=== PATIENT | female | born 1940 | race Caucasian/White ===

== ENCOUNTER → 2020-05-31 11:50 | Outpatient (CLI) | payer MEDICARE, SELFPAY ==
[2020-06-01 14:01] LABS: COVID19 Sendout Not Detected (Not Detect)
== END ==
PROVIDERS: Visit Provider Physician Assistant
DX: Z11.59 Encounter for screening for other viral diseases (principal)
CPT/HCPCS: 87635

== ENCOUNTER 2020-06-03 08:50 | Day surgery (SDC) | payer MEDICARE, SELFPAY ==
--- NOTE | 2020-06-03 | PATH_ITS ---
[facility] Accession Number: [id number] . 01 Material submitted: . small bowel - SMALL BOWEL BIOPSY . 02 Diagnosis: Small Bowel, Biopsy: Small bowel mucosa with no diagnostic abnormality. Negative for intraepithelial lymphocytosis or villous blunting. Negative for dysplasia and malignancy. MRV 06/05/2020 1303 Local . 02 Electronically signed: . Kim Hancock MD, Pathologist NPI- [id number] . 01 Gross description: . SMALL BOWEL BIOPSY: Received in formalin are 2 fragment(s) of hays, soft tissue measuring 0.1 x 0.1 x 0.1 cm to 0.3 x 0.2 x 0.2 cm submitted entirely in 1 cassette(s) /FLORI 06/04/20202051 Local . 02 Pathologist provided ICD-10: R13.10 . 02 CPT . 323768 Performed at: 01 [facility] [address] [facility], [place], [place] [id number] MD Robel Guillermo MD Phone: [phone] Performed at: [address] [facility] [address] [place], [place] [id number] MD Kim Hancock MD Phone: [phone]
[2020-06-03 09:14] VITALS: BP 162/62; PULSE 66; RESP 16; TEMP 36.3; O2SAT 98; BMI 21.6
[2020-06-03] MEDS: SODIUM CHLORIDE 0.9% 1,000 ML 42 ML IV (09:49)
--- NOTE | 2020-06-03 10:08 | PM.PREOP ---
Pre-operative Note COVID-19 COVID-19 status: Negative Interval Note History & Physical reviewed/Exam performed by Physician: Yes Changes to H&P: No ASA Class (for procedural sedation): II
--- NOTE | 2020-06-03 10:13 | PM.OP.ENDO ---
Operative Date/Time/Diagnoses Date of procedure: 06/03/20 Pre-op diagnosis: See indication and findings Procedure & Clinicians Study performed: EGD Same procedure as scheduled: Yes Indications: Dysphagia and anorexia after paraesophageal hernia repair Surgeon: Chino Doyle Procedure Notes Procedure in detail: After informed consent was obtained the patient was placed in left lateral decubitus position. Video upper scope was placed into the oropharynx and with the patient's help swelled into the esophagus. The esophagus, stomach, duodenum were carefully examined. On withdrawal, retroflexed view the GE junction was performed. The scope was removed. The patient tolerated procedure well. Blood loss none Complications none Sedation Total sedation time 19 minutes Versed 3 mg fentanyl 100 micro g IV titration Findings 1. Proximal esophagus with no coordinated contractions and some degree of spasm 2. Seemingly somewhat dilated in a peristaltic distal esophagus with a very tight GE junction. On retroflexed view this appeared to be an intact hernia repair. Given her degree of dysphagia and weight loss it was elected to dilate this. A balloon TTS was used 15-16.5-18. It was inflated Joseluis the 1st 2 steps and moved relatively easily within the lower esophageal sphincter/hernia repair site. On inflation to 18 mm there was a little bit of purchase. 3. Poor gastric emptying with large amount of old solid food present in the stomach 4. Normal duodenal bulb and sweep biopsies taken to rule out celiac Linda is becoming a bit more complicated. I believe that her dysphagia and some of her anorexia may be due to her tight repair site but clearly this of other symptoms and part of her anorexia may be due to very poor gastric emptying. This in turn is probably from inadvertent damage to the vagus nerve at the time of surgery. We will follow her up closely in the office.
[2020-06-03] MEDS: MIDAZOLAM 5 MG/5 ML VIAL IV (10:17)
[2020-06-03] MEDS: fentaNYL 250 MCG/5 ML INJ IV (10:21)
[2020-06-03 10:37] VITALS: BP 160/74; PULSE 68; RESP 11; TEMP 36.7; O2SAT 96
[2020-06-03 10:43] VITALS: BP 158/82; PULSE 81; RESP 11; TEMP 36.9; O2SAT 94
[2020-06-03 10:48] VITALS: BP 157/76; PULSE 74; RESP 12; TEMP 36.7; O2SAT 95
[2020-06-03 10:52] VITALS: BP 149/67; PULSE 69; RESP 14; TEMP 37; O2SAT 95
[2020-06-03 11:00] VITALS: BP 147/67; PULSE 73; RESP 16; TEMP 37; O2SAT 96
== END 2020-06-03 11:10 | disposition home or self-care (01) ==
PROVIDERS: PCP Family Medicine; Referring Provider Family Medicine; Visit Provider Internal Medicine Gastroenterology
PROC: 0DJ08ZZ Inspection of Upper Intestinal Tract, Via Natural or Artificial Opening Endoscopic (ICD-10-PCS; CPT 43235; principal; 2020-06-03 10:00)
DX: R13.10 Dysphagia, unspecified (principal); K21.9 Gastro-esophageal reflux disease without esophagitis; R63.0 Anorexia; I48.91 Unspecified atrial fibrillation; J44.9 Chronic obstructive pulmonary disease, unspecified; Z79.01 Long term (current) use of anticoagulants
CPT/HCPCS: 43249; 43239; J2250; J3010

== ENCOUNTER → 2020-07-27 11:11 | Outpatient (CLI) | payer MEDICARE, SELFPAY ==
[2020-07-27 13:36] LABS: COVID19 -Nasal RAPID Negative (Negative)
== END ==
PROVIDERS: PCP Family Medicine; Visit Provider Physician Assistant
DX: Z11.59 Encounter for screening for other viral diseases (principal)
CPT/HCPCS: 87635

== ENCOUNTER 2020-10-11 14:29 | Emergency (ER) | payer MEDICARE, SELFPAY ==
[2020-10-11] VITALS (22 sets, daily range): BP systolic 100–150; BP diastolic 49–68; PULSE 67–103; RESP 14–38; TEMP 36.8; O2SAT 92–100; BMI 21.4
--- NOTE | 2020-10-11 14:47 | DI.RAD.S_ITS ---
PROCEDURE: XR CHEST 1V INDICATIONS: chest pain TECHNIQUE: One view of the chest was acquired. COMPARISON: None. FINDINGS: Surgical changes and devices: None. Lungs and pleura: Lungs are clear. No pleural effusions or pneumothorax. Mediastinum: The cardiac contours are within normal limits. The aorta demonstrates calcification and tortuosity. Bones and chest wall: No suspicious bony lesions. Age-appropriate bony degenerative changes are seen. There is truncation of the left distal clavicle. There is a likely remote fracture of right distal clavicle. Overlying soft tissues appear unremarkable. IMPRESSION: No acute cardiopulmonary process is seen on this portable chest study. Dictated by: Ervin Alegria M.D. on 10/11/2020 at 14:09 Approved by: Ervin Alegria M.D. on 10/11/2020 at 14:10
--- NOTE | 2020-10-11 14:50 | ED_ITS ---
HPI - Chest Pain General Chief Complaint: Chest Pain Stated Complaint: chest pain Time Seen by Provider: 10/11/20 14:33 Source: patient Mode of arrival: Ambulatory Limitations: no limitations History of Present Illness HPI narrative: Patient is an 79-year-old female with history of atrial fibrillation on digoxin and Eliquis along with dysphagia. She has been having ongoing worsening dysphagia for about the last 5 years. She was recently seen by GI here she is scheduled to have an EGD and a scope done in 2 days. She says every time she eats she has chest pain and she vomits. She lost 20 lb since April of 2020. He said she tried to eat some stew 2 nights ago and since then has had chest pain and some vomiting. She has some very mild chest discomfort now it is nonradiating she denies any shortness of breath with exertion. She overall feels that her weight loss and inability to eat are her biggest con cerns. She does not feel like she is going to make it for the next 2 days when she sees follow-up heard with GI. She said previously she has gone to [facility] and she was want sent to [facility] and wents to [facility]. Her EKG does show some concerning T-wave inversions have no priors to compare. She overall appears comfortable MD complaint: chest pain Onset (ago): day(s) Pain location: substernal Related Data Home Medications Medication Instructions Recorded Confirmed amlodipine 5 mg PO DAILY 06/03/20 10/11/20 apixaban [Eliquis] 5 mg PO BID 06/03/20 10/11/20 digoxin [Digox] 125 mcg PO DAILY 06/03/20 10/11/20 losartan 25 mg PO DAILY 06/03/20 10/11/20 metoprolol succinate 50 mg PO QPM 06/03/20 10/11/20 pantoprazole 40 mg PO BID 06/03/20 10/11/20 hydroxyzine HCl 25 mg PO BEDTIME 10/11/20 10/11/20 Allergies Allergy/AdvReac Type Severity Reaction Status Date / Time lidocaine Allergy Severe Difficulty Verified 10/11/20 14:48 Breathing codeine Allergy Intermediate Headache Verified 10/11/20 14:48 Penicillins Allergy Intermediate Rash Verified 10/11/20 14:48 Review of Systems Review of Systems Narrative: GENERAL: Denies chills, fatigue, malaise, fever, sweats, travel HEENT: Denies sinus pain, ear pain, sore throat, difficulty swallowing, neck pain RESPIRATORY: Denies dyspnea, cough, wheezing, hemoptysis, sputum. CARDIOVASCULAR: See HPI GASTROINTESTINAL: See HPI difficulty swallowing : Denies dysuria, frequency, incontinence, hematuria, urinary retention, flank pain. MUSCULOSKELETAL: Denies weakness, joint pain, or bony pain SKIN: No rash, no erythema, no pruritus NEUROLOGIC: Denies weakness, dizziness, headache, numbness, change in speech, confusion PSYCHIATRIC: No concerning psychosocial issues. 12 point review of systems is negative except for those stated above and HPI Patient History Medical History (Updated 10/11/20 @ 18:39 by Alyssia Dao DO) Anticoagulant long-term use Atrial fibrillation Delayed gastric emptying Dilated cardiomyopathy Dysphagia Esophageal achalasia Hypertension Unstable angina Surgical History History of fundoplication History of repair of hiatal hernia Social History household members: significant other Smoking Status: Former smoker alcohol intake: never Smoking Status: Former smoker alcohol intake frequency: 0-2 drinks per day Substance Use Type: does not use Exam Initial Vital Signs Initial Vital Signs: Vital Signs Temperature 98.2 F 10/11/20 14:39 Pulse Rate 103 H 10/11/20 14:39 Respiratory Rate 18 10/11/20 14:39 Blood Pressure 150/68 H 10/11/20 14:39 Pulse Oximetry 98 10/11/20 14:39 GENERAL: Alert pleasant 79-year-old female and in no acute distress. HEENT: Head atraumatic,EOMI, pupils reactive, face symmetric, moist mucous me mbranes CARDIOVASCULAR: Regular rate and rhythm without murmurs, rubs or gallops. RESPIRATORY: Breath sounds equal bilaterally, no wheezes rales or rhonchi. EXTREMITIES: Normal range of motion, no clubbing or edema. Neurovascularly intact NEUROLOGICAL: Alert and oriented x4.Normal gait and speech. Cranial nerves II through XII grossly intact. SKIN: Warm, dry, no laceration, no petechiae, no rashes or lesions. Course Orders Ordered: ED Orders 10/11/20 14:41 Digoxin Stat 10/11/20 14:45 Complete Blood Count AUTO DIFF Stat Comprehensive Metabolic Panel Stat Lipase Stat Magnesium Stat NT-proBNP (BNP-Adult 18+) Stat Partial Thromboplastin Time Stat Prothrombin Time INR Stat Troponin & CK Cardiac Panel Stat 10/11/20 14:47 XR chest 1V Stat EKG-12 Lead Stat 10/11/20 16:05 COVID19 Stat 10/12/20 05:00 Hemoglobin and Hematocrit DAILY Heparin Sodium/Dextrose (Heparin Drip) 25,000 unit in 500 mls @ 12.116 mls/hr IV CONT LYNN; Protocol Last Admin: 10/11/20 17:24 Dose: 12 units/kg/hr, 12.116 mls/hr Documented by: TWIN Discontinued Medications Aspirin (Aspirin 81 Mg Chew Tab) 324 mg PO NOW ONE Stop: 10/11/20 14:48 Last Admin: 10/11/20 14:58 Dose: 324 mg Documented by: LAURA Heparin Sodium (Porcine) (Heparin 5,000 Unit/Ml Vial) 4,000 unit IV NOW ONE Stop: 10/11/20 17:14 Last Admin: 10/11/20 17:23 Dose: 4,000 unit Documented by: TWIN Sodium Chloride (Normal Saline 0.9%) 250 mls @ 1,000 mls/hr IV BOLUS ONE Stop: 10/11/20 15:05 Last Admin: 10/11/20 15:55 Dose: Not Given Documented by: LAURA Sodium Chloride (Normal Saline 0.9%) 1,000 mls @ 1,000 mls/hr IV BOLUS ONE Stop: 10/11/20 16:00 Last Infusion: 10/11/20 15:57 Dose: 0 mls/hr Documented by: Admin: 10/11/20 15:07 Dose: 1,000 mls/hr Documented by: LAURA Ondansetron HCl (Ondansetron 4 Mg/2 Ml Inj) 4 mg IV NOW ONE Stop: 10/11/20 14:51 Last Admin: 10/11/20 14:58 Dose: 4 mg Documented by: LAURA Pantoprazole Sodium (Pantoprazole 40 Mg Vial) 40 mg IV NOW ONE Stop: 10/11/20 15:02 Last Admin: 10/11/20 15:06 Dose: 40 mg Documented by: LAURA Vital Signs Vital signs: Vital Signs - 8 hr 10/11/20 14:39 10/11/20 14:52 10/11/20 15:00 Temperature 98.2 F Pulse Rate 103 H 95 H 89 Respiratory Rate 18 29 H 33 H Blood Pressure 150/68 H 125/58 L Pulse Oximetry 98 97 98 10/11/20 15:15 10/11/20 15:30 10/11/20 15:45 Temperature Pulse Rate 71 75 67 Respiratory Rate 32 H 38 H 19 Blood Pressure 100/49 L 117/55 L 110/56 L Pulse Oximetry 92 93 10/11/20 16:00 10/11/20 16:15 10/11/20 16:30 Temperature Pulse Rate 75 71 70 Respiratory Rate 19 19 23 Blood Pressure 116/57 L 120/58 L 104/53 L Pulse Oximetry 100 99 99 10/11/20 16:45 10/11/20 16:56 10/11/20 17:00 Temperature Pulse Rate 72 78 73 Respiratory Rate 19 24 16 Blood Pressure 116/59 L 126/59 L Pulse Oximetry 98 98 99 10/11/20 17:15 10/11/20 17:30 Temperature Pulse Rate 72 84 Respiratory Rate 14 29 H Blood Pressure 113/56 L 123/66 Pulse Oximetry 99 99 MDM - Chest Pain Lab Data Attestation: I reviewed the patient's lab results. Result diagrams: 10/11/20 14:45 10/11/20 14:45 Labs: Lab Results 10/11/20 10/11/20 10/11/20 Range/Units 14:41 14:45 14:45 WBC 12.8 H (4.5-11.0) X10^3/uL RBC 5.54 H (4.0-5.2) X10^6/uL Hgb 15.9 (12.0-16.0) g/dL Hct 49.7 H (36-46) % MCV 89.7 (80-100) fL MCH 28.7 (26-34) PG MCHC 32.0 (30-36) % RDW 13.6 (11.6-14.8) % Plt Count 357 (150-400) X10^3/uL Neut % (Auto) 76.9 H (50-75) % Lymph % (Auto) 16.7 L (25-40) % [place] % (Auto) 5.7 (3-14) % Eos % (Auto) 0.3 L (2-4) % Baso % (Auto) 0.4 (0-2) % Neut # (Auto) 9800 H (2089-9415) /uL Lymph # (Auto) 2100 (0061-3456) /uL [place] # (Auto) 700 (0-900) /uL Eos # (Auto) 0 (0-450) /uL Baso # (Auto) 100 (0-100) /uL PT 12.6 (10.1-12.7) SECONDS INR 1.1 (0.9-1.3) APTT 39 H (26.4-36.2) SECONDS Sodium (137-145) mmol/L Potassium (3.4-5.1) mmol/L Chloride (98-107) mmol/L Carbon Dioxide (22-32) mmol/L BUN (7-17) mg/dL Creatinine (0.52-1.04) mg/dL Estimated GFR (>60) mL/min BUN/Creatinine Ratio (6-22) Glucose (80-110) mg/dL Calcium (8.4-10.2) mg/dL Magnesium (1.6-2.3) mg/dL Total Bilirubin (0.2-1.3) mg/dL AST (14-36) IU/L ALT (<35) IU/L Alkaline Phosphatase (38-126) U/L Total Creatine Kinase (30-135) U/L CK-MB (CK-2) CK-MB (CK-2) Rel Index Troponin I (0.01-0.034) ng/mL NT-Pro-B Natriuret Pep (<450) pg/mL Total Protein (6.3-8.2) g/dL Albumin (3.5-5.0) g/dL Globulin (1.7-4.1) g/dL Albumin/Globulin Ratio (1.0-2.8) Lipase (23-300) U/L Digoxin < 0.4 L (0.8-2.0) ng/mL SARS-CoV-2 (PCR) (Negative) 10/11/20 10/11/20 10/11/20 Range/Units 14:45 14:45 16:05 WBC (4.5-11.0) X10^3/uL RBC (4.0-5.2) X10^6/uL Hgb (12.0-16.0) g/dL Hct (36-46) % MCV (80-100) fL MCH (26-34) PG MCHC (30-36) % RDW (11.6-14.8) % Plt Count (150-400) X10^3/uL Neut % (Auto) (50-75) % Lymph % (Auto) (25-40) % [place] % (Auto) (3-14) % Eos % (Auto) (2-4) % Baso % (Auto) (0-2) % Neut # (Auto) (2191-3762) /uL Lymph # (Auto) (7503-0828) /uL [place] # (Auto) (0-900) /uL Eos # (Auto) (0-450) /uL Baso # (Auto) (0-100) /uL PT (10.1-12.7) SECONDS INR (0.9-1.3) APTT (26.4-36.2) SECONDS Sodium 138 (137-145) mmol/L Potassium 4.8 (3.4-5.1) mmol/L Chloride 105 (98-107) mmol/L Carbon Dioxide 26 (22-32) mmol/L BUN 17 (7-17) mg/dL Creatinine 0.81 (0.52-1.04) mg/dL Estimated GFR > 60.0 (>60) mL/min BUN/Creatinine Ratio 21.0 (6-22) Glucose 106 (80-110) mg/dL Calcium 9.9 (8.4-10.2) mg/dL Magnesium 2.1 (1.6-2.3) mg/dL Total Bilirubin 0.6 (0.2-1.3) mg/dL AST 45 H (14-36) IU/L ALT 24 (<35) IU/L Alkaline Phosphatase 116 (38-126) U/L Total Creatine Kinase 73 (30-135) U/L CK-MB (CK-2) TNP CK-MB (CK-2) Rel Index TNP Troponin I 1.450 H* (0.01-0.034) ng/mL NT-Pro-B Natriuret Pep 7410 H (<450) pg/mL Total Protein 7.8 (6.3-8.2) g/dL Albumin 4.4 (3.5-5.0) g/dL Globulin 3.4 (1.7-4.1) g/dL Albumin/Globulin Ratio 1.3 (1.0-2.8) Lipase 35 (23-300) U/L Digoxin (0.8-2.0) ng/mL SARS-CoV-2 (PCR) Negative (Negative) ECG Data Attestation: I personally reviewed and interpreted this ECG as follows: Prior ECG tracings: not available for review Interpretation: EKG 1. Sinus Rhythm rate 82 p.r. interval 178 QRS 88 QTC 490 significant deep T-wave inversions noted in precordial leads and inferior leads no ST elevations no priors to compare EKG 2. Sinus rhythm rate 73 persistent is deep T-wave inversions no ST elevations MDM Narrative Medical decision making narrative: Records received from [facility] unfortunately no previous EKG. Troponin returned as critically elevated at 1.4. Patient is actually chest pain free. He continues to be very concerned in regards to her dysphagia. She states every time she takes her pills she throws them back up it is unclear when she kept down Eliquis last. Dr. Glass, at [facility] after a.m. patient's symptoms test results agrees with transfer and happily accepted Critical Care Time Critical Care Time Critical Care Time: Yes Total Critical Care Time: 30 Attestation: The high probability of a clinically significant, sudden or life threatening deterioration of the [cardiovascular] system(s) required my full and direct attention, intervention and personal management. The aggregate critical care time was 30 minutes. This time is in addition to time spent performing reported procedures but includes the following: [x] Data Review and interpretation [x] Patient assessment and monitoring of vital signs [x] Documentation [x] Medication orders and management Discharge Plan Departure Patient Disposition: [facility] Clinical Impression: Non-ST elevation ID (NSTEMI) Prescriptions: No Action metoprolol succinate 50 mg Tablet Extended Release 24 Hr 50 mg PO QPM RF: 0 amlodipine 5 mg Tablet 5 mg PO DAILY RF: 0 pantoprazole 40 mg Tablet,Delayed Release (Dr/Ec) 40 mg PO BID RF: 0 losartan 25 mg Tablet 25 mg PO DAILY RF: 0 digoxin [Digox] 125 mcg (0.125 mg) Tablet 125 mcg PO DAILY RF: 0 Eliquis 5 mg Tablet 5 mg PO BID RF: 0 hydroxyzine HCl 25 mg Tablet 25 mg PO BEDTIME RF: 0 Referrals: Catarino Flores MD [Primary Care Provider] -
--- NOTE | 2020-10-11 14:57 | PC.NURSE ---
Called [facility] in [facility] where pt had her last EKG per her report. ([phone]). they state they are unable to obtain any medical records, even in emergent situation.
[2020-10-11] MEDS: ASPIRIN 81 MG CHEW TAB 324 MG PO (14:58)
[2020-10-11] MEDS: ONDANSETRON 4 MG/2 ML INJ IV (14:58)
[2020-10-11 15:03] LABS: INR 1.1 (0.9-1.3); Prothrombin Time 12.6 SECONDS (10.1-12.7)
[2020-10-11 15:04] LABS: Add Manual Diff / Slide Review NO; Basophils Absolute Auto 100 /uL (0-100); Basophils Percent Auto 0.4 % (0-2); Eosinophils Absolute Auto 0 /uL (0-450); Eosinophils Percent Auto 0.3 % (2-4); Hematocrit 49.7 % (36-46); Hemoglobin 15.9 g/dL (12.0-16.0); Lymphocytes Absolute Auto 2100 /uL (1100-4500); Lymphocytes Percent Auto 16.7 % (25-40); Mean Corpuscular Hemoglobin 28.7 PG (26-34); Mean Corpuscular Volume 89.7 fL (80-100); Monocytes Absolute Auto 700 /uL (0-900); Monocytes Percent Auto 5.7 % (3-14); Neutrophils Absolute Auto 9800 /uL (1500-7000); Neutrophils Percent Auto 76.9 % (50-75); Platelet Count 357 X10^3/uL (150-400); Red Blood Cell Count 5.54 X10^6/uL (4.0-5.2); Red Cell Distribution Width 13.6 % (11.6-14.8); White Blood Cell Count 12.8 X10^3/uL (4.5-11.0)
[2020-10-11 15:06] LABS: PTT Partial Thromboplastin Tim 39 SECONDS (26.4-36.2)
[2020-10-11] MEDS: PANTOPRAZOLE 40 MG VIAL IV (15:06)
[2020-10-11 15:07] LABS: Alanine Aminotransferase 24 IU/L (<35); Albumin 4.4 g/dL (3.5-5.0); Albumin Globulin Ratio 1.3 (1.0-2.8); Alkaline Phosphatase 116 U/L (38-126); Aspartate Aminotransferase 45 IU/L (14-36); Bilirubin Total 0.6 mg/dL (0.2-1.3); Blood Urea Nitrogen 17 mg/dL (7-17); Calcium 9.9 mg/dL (8.4-10.2); Carbon Dioxide 26 mmol/L (22-32); Chloride 105 mmol/L (98-107); Creatine Kinase 73 U/L (30-135); Estimated Glomerular Filt Rate > 60.0 mL/min (>60); Globulin 3.4 g/dL (1.7-4.1); Glucose 106 mg/dL (80-110); HEMOLYSIS 60 (0-50); Lipase 35 U/L (23-300); Potassium 4.8 mmol/L (3.4-5.1); Sodium 138 mmol/L (137-145); Total Protein 7.8 g/dL (6.3-8.2)
[2020-10-11] MEDS: SODIUM CHLORIDE 0.9% 1,000 ML 1000 ML IV (15:07)
[2020-10-11 15:19] LABS: NT-proBNP (BNP-Adult 18+) 7410 pg/mL (<450)
[2020-10-11 15:26] LABS: Magnesium 2.1 mg/dL (1.6-2.3)
[2020-10-11 15:30] LABS: Digoxin < 0.4 ng/mL (0.8-2.0)
[2020-10-11 16:29] LABS: COVID19 -Nasal RAPID Negative (Negative)
[2020-10-11] MEDS: HEPARIN 5,000 UNIT/ML VIAL 4000 UNIT IV (17:23)
[2020-10-11] MEDS: HEPARIN DRIP 25,000 UNIT/500 ML IV.SOLN 12.116 UNIT IV (17:24)
== END 2020-10-11 19:17 | disposition short-term general hospital (02) ==
PROVIDERS: Nurse Practitioner Family; Emergency Provider Emergency Medicine; PCP Family Medicine
DX: I21.4 Non-ST elevation (NSTEMI) myocardial infarction (principal); I48.91 Unspecified atrial fibrillation; Z79.01 Long term (current) use of anticoagulants; R13.10 Dysphagia, unspecified; R11.10 Vomiting, unspecified; I10 Essential (primary) hypertension; Z20.822 Contact with and (suspected) exposure to COVID-19
CPT/HCPCS: 36415; 71045; 80053; 80162; 82550; 83690; 83735; 83880; 84484; 85025; 85610; 85730; 87635; 93005; 96365; 96366; 96375; 99284; 99291; C9803; C9113; J1644; J2405

== ENCOUNTER → 2020-10-19 12:53 | Outpatient (CLI) | payer MEDICARE, SELFPAY ==
--- NOTE | 2020-10-19 | DI.RAD.S_ITS ---
PROCEDURE: FL BARIUM SWALLOW INDICATIONS: DYSPHAGIA COMPARISON: [facility], , [place] BARIUM SWALLOW W SPEECH, 10/19/2020, 14:50. FINDINGS: Function: There is normal esophageal peristalsis. The gastroesophageal junction is narrowed and opens with primary peristalsis, but there is incomplete emptying of the distal esophagus with each swallow. Intermittent tertiary contractions are noted. No elicited gastroesophageal reflux. No attempt was made to pass a calibrated barium tablet through the esophagus into the stomach due to postsurgical narrowing of the gastroesophageal junction. Morphology: Postsurgical changes are seen from gastric fundoplication with associated narrowing of the gastroesophageal junction. The enteric channel at the gastroesophageal junction measures approximately 7 mm in diameter with mild dilation of the distal esophagus. No esophageal diverticulum is seen. Limited images of the distal stomach demonstrate normal appearance. IMPRESSION: Postsurgical changes from gastric fundoplication with narrowing of the gastroesophageal junction to approximately 7 mm in diameter. There is incomplete emptying of the distal esophagus with each swallow with mild distal esophageal dilation. Dictated by: Brody Reyes M.D. on 10/19/2020 at 15:24 Approved by: Brody Reyes M.D. on 10/19/2020 at 15:30
--- NOTE | 2020-10-19 | DI.RAD.S_ITS ---
PROCEDURE: FL BARIUM SWALLOW W SPEECH INDICATIONS: Dysphagia COMPARISON: None. TECHNIQUE: Examination was conducted in conjunction with speech pathology per standard protocol. In the lateral projection, filming was performed of the patient swallowing. AP projection filming may also be performed with patient swallowing. COMPARISON: FINDINGS: Function: The oral preparatory phase appears normal, with proper containment. The subsequent oral propulsive phase, pharyngeal phase, and esophageal phase of swallowing also appear normal with all proffered substances. Trace laryngotracheal penetration was seen on the 1st swallow without additional episodes of laryngeal tracheal penetration or aspiration. No pathologic vallecular pooling. Morphology: No cricopharyngeal bar is identified. No cervical esophageal webs. No Zenker's diverticulum. No strictures. There is incomplete emptying of the distal esophagus throughout the exam. IMPRESSION: Single episode of transient trace laryngeal tracheal penetration. Speech swallow exam otherwise within normal limits. Please see separate Speech Pathology report for additional information. Additionally, there is incomplete emptying of the distal esophagus during the exam. Dictated by: Brody Reyes M.D. on 10/19/2020 at 15:21 Approved by: Brody Reyes M.D. on 10/19/2020 at 15:24
--- NOTE | 2020-10-19 17:03 | ST.SWALLOW ---
Visit Care Team Role Provider Type Miller Saez DO Primary Care Provider Non-Staff Specialty: Family Practice Address: [address] [place] [address], [place], [address] Email: Chino Doyle MD Attending Provider Physician Referring Provider Specialty: Gastroenterology Address: [address] [place] [address], [facility] [place], [address] Email: Modified Barium Swallow Study PROFESSIONAL ORGANIZER Modified Barium Swallow Study Start: 10/19/20 17:48 Freq: Status: Active Protocol: Document 10/19/20 17:48 JIMENEZ (Rec: 10/19/20 17:52 [email or web address] [id number]) Modified Barium Swallow Study Total Time Visit Start Time 13:30 Visit Stop Time 14:10 Total Visit Minutes [address] Chino Doyle Reason for Referral Dysphagia Setting Setting Outpatient Care Patient Information Identification Type Name,ID Card Patient History The pt is an 79-yr-old female who had double hernia surgery in early 2019 in [place]. After surgery, she continued with significant reflux and in December 2019 moved back to [facility]. In May , she underwent further GI assessment with findings of insufficient extension of LES, which was causing bolus buildup in esophagus, resulting in frequent vomiting for the pt. The pt has lost 40 lbs since her surgery. In Sep 2020, LES was treated with Botox and the pt placed on full liquid diet . She reported no further throwing up since these treatmens/modifications. Orders were received for barium and modified barium swallow studies. Pt's complaints were all esophageal , and she denied oral and pharyngeal swallow difficulties. Consulted with Radiologist and agreed to follow MD orders for both studies. The pt was agreeable to this. Subjective Observations The pt arrived on time and provided thorough case history . Agreeable to both barium swallow studies. Trials limited to liquids and pureed textures for pt safety. Patient Positioning Position View Lat-A/P Imaging Lateral View Textures Administered Trials Presented Thin Liquid via Spoon,Thin Liquid via Cup,Croom Liquid via Spoon,Croom Liquid via Cup,Honey Liquid via Spoon, Dysphagia Blenderized Textures Oral Phase Source: MBSIMP (TM) (C) Bolus Specific Scoring Grid Lip Closure No Impairment (WNL) Tongue Control During Bolus Hold No Impairment (WNL) Bolus Prep/Mastication No Impairment (WNL) Bolus Transport/Lingual Motion No Impairment (WNL) A/P Lingual Propulsion Delay No Oral Residue WFL Residue Clearing No Impairment (WNL) Nasal Regurgitation No Additional Oral Phase Observations Oral Peripheral Exam: WNL. Pt has complete natural dentition in good condition. Pharyngeal Phase Source: MBSIMP (TM) (C) Bolus Specific Scoring Grid Delayed Initiation of Pharyngeal Swallow First trial only, to pyriform sinuses Soft Palate Elevation No Impairment (WNL) Tongue Base Strength/Range of Motion No Impairment (WNL) Residue Along the Tongue Base Yes: Trace Clearance of Residue Along Tongue Base No Impairment (WNL) Laryngeal Elevation No Impairment (WNL) Anterior Hyoid Movement No Impairment (WNL) Epiglottic Range of Motion No Impairment (WNL) Vallecular Residue Yes: Occ trace Clearance of Vallecular Residue WFL Laryngeal Vestibular Closure No Impairment (WNL) Pharyngeal Stripping Wave Moderate Impairment Pharyngeal Contraction No Impairment (WNL) Posterior Pharyngeal Wall Residue No Upper Esophageal Sphincter Opening No Impairment (WNL) Residue in the Pyriform Sinuses No Esophageal Clearance Upright Position Severe Impairment Pharyngoesophageal Backflow Observed No Additional Pharyngeal Phase Observations Flash laryngeal penetration ( PAS 2) observed with first trial of thin liquid only. No other laryngeal penetration or tracheal aspiration was observed. Pharyngeal swallow is largely WNL with exception of reduced pharyngeal stripping wave that does not hinder bolus flow at this time. A/P View Textures Administered Trials Presented Croom Liquid via Cup A/P View Observations Pharyngeal Contraction WFL Esophageal Function Stasis Esophageal Clearance Upright Position Severe Impairment Additional Observations During lateral viewing, there appeared to be a consistent large air bubble below UES at C6-C7 level, present with and between every swallow. The pt reported feeling that she was swallowing air, although air within the bolus was not observed in the pharyngeal phase, and the pt never burped throughout the study. In close video review of the passage of the pudding bolus, the image appears to resemble a conical structure more than an air bubble. Further evaluation of the proximal esophagus is recommended to r/ o structural abnormality. Additionally, incomplete emptying of the distal esophagus was observed during the exam. Please refer to Radiologist report and subsequent barium swallow study report. Clinical Impressions Dysphagia Type WNL Findings Penetration of initial tsp of thin liquid only. No other penetration/aspiration observed. Oral and pharyngeal swallow phases are WNL for age . Patient Appropriate for Therapy No Recommendations Diet Liquids Order Thin Diet Order Full Liquids Comments Diet order per esophageal function & pt report of MD recommendation Aspiration Precautions Recommended Precautions Upright at 90 Degrees,Frequent Rest Periods,Small Bites/Sips Additional Precautions Remain upright 30+ min after oral intake
== END ==
PROVIDERS: PCP Family Medicine; Referring Provider Internal Medicine Gastroenterology; Visit Provider Internal Medicine Gastroenterology
DX: R13.10 Dysphagia, unspecified (principal); K22.8 Other specified diseases of esophagus; K22.2 Esophageal obstruction; Z98.890 Other specified postprocedural states
CPT/HCPCS: 74220; 74230; 92611

== ENCOUNTER → 2021-06-01 08:52 | Outpatient (CLI) | payer MEDICARE, SELFPAY ==
--- NOTE | 2021-06-01 | DI.RAD.S_ITS ---
PROCEDURE: FL BARIUM SWALLOW W SPEECH INDICATIONS: Dysphagia, unspecified COMPARISON: TECHNIQUE: Examination was conducted in conjunction with speech pathology per standard protocol. In the lateral projection, filming was performed of the patient swallowing. AP projection filming may also be performed with patient swallowing. COMPARISON: [facility], , [place] BARIUM SWALLOW W SPEECH, 10/19/2020, 14:50. [facility], , [place] BARIUM SWALLOW, 10/19/2020, 15:01. FINDINGS: Function: The oral preparatory phase appears normal, with proper containment. The subsequent oral propulsive phase, pharyngeal phase, and esophageal phase of swallowing also appear normal with all proffered substances. No laryngotracheal penetration or aspiration. No pathologic vallecular pooling. Morphology: No cricopharyngeal bar is identified. No cervical esophageal webs. No Zenker's diverticulum. No strictures. There is a moderate-sized hiatal hernia (? paraesophageal). Distal to the hiatal hernia, there is narrowing at the GE junction causing partial esophageal obstruction with incomplete emptying of esophagus joint exam. IMPRESSION: 1. No tracheal laryngeal penetration or aspiration. Please see speech pathology's report for detail. 2. Moderate-sized hiatal hernia. 3. Narrowing of the distal esophagus at the GE junction causing partial esophageal obstruction. Dictated by: Jocelynn Gonzalez M.D. on 06/01/2021 at 10:36 Approved by: Jocelynn Gonzalez M.D. on 06/01/2021 at 10:40
--- NOTE | 2021-06-02 11:03 | ST.SWALLOW ---
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 Doyle Reason for Referral dysphagia Setting Setting Outpatient Care Patient Information Identification Type Name,Date of Patient History Pt presented for a Modified Barium Swallow Study (MBSS) at the referral of her GI physician Dr. Arjun Doyle. According to the pt, she has a medical history of hiatal hernia repair x2. The initial repair was in [facility] in 2018; the second surgery was at [facility] in October 2020. Pt reports that she continues to have difficulty swallowing foods with any texture. She described the foods (and liquids at times) as being stuck at her mid-chest level. She frequently needs to regurgitate undigested foods after 1-3 bites. Foods that are difficult include meats, breads or any texture she reported. Currently she eats only pureed soups, mashed potatoes, etc. When the foods gets stuck, she describes it as uncomfortable. Subjective Observations Pt was seated in the fluorscopy chair. Directions and procedure were described for the pt. She noted that she had had an MBSS in October 2020 and was familiar with the procedure and agreed to proceed. Patient Positioning Position View Lat-A/P Imaging Lateral View Textures Administered Trials Presented Thin Liquid via Spoon,Thin Liquid via Cup,Pudding Thick Liquid via Spoon,Regular Textures Oral Phase Source: MBSIMP (TM) (C) Bolus Specific Scoring Grid Lip Closure No Impairment (WNL) Tongue Control During Bolus Hold WFL Bolus Prep/Mastication WFL Bolus Transport/Lingual Motion Minimal Impairment A/P Lingual Propulsion Delay No Oral Residue Minimal Impairment Residue Clearing WFL Nasal Regurgitation No Additional Oral Phase Observations OME was conducted with the results indicating strength and function WNL. Pt has natural teeth in good hygiene. Mastication appeared to be WNL with a rotary chew. No oral stasis was noted throughout the MBSS. Pharyngeal Phase Source: MBSIMP (TM) (C) Bolus Specific Scoring Grid Delayed Initiation of Pharyngeal Swallow Premature spillage to the valeculla and pyriform sinuses Soft Palate Elevation No Impairment (WNL) Tongue Base Strength/Range of Motion Mild Impairment Residue Along the Tongue Base Yes Clearance of Residue Along Tongue Base Minimal Impairment Laryngeal Elevation Minimal Impairment Anterior Hyoid Movement Minimal Impairment Epiglottic Range of Motion Minimal Impairment Vallecular Residue Yes Clearance of Vallecular Residue WFL Laryngeal Vestibular Closure WFL Pharyngeal Stripping Wave Mild Impairment Posterior Pharyngeal Wall Residue Yes Clearance of Posterior Pharyngeal Wall WFL Residue Upper Esophageal Sphincter Opening Mild Impairment Residue in the Pyriform Sinuses No Esophageal Clearance Upright Position Moderate Impairment Pharyngoesophageal Backflow Observed No Additional Pharyngeal Phase Observations Mild base of tongue strength was observed, which resulted in premature spillage to the valeculla and pyriform sinuses . Laryngeal elevation and hyoid movement were mildly weak, impacting the epiglottic inversion and resulting in pooled residue at the valeculla, the posterior pharyngeal wall and the pyriform sinuses. Pooled residue was cleared with subsequent swallows. The laryngeal seal was adequate with no observed laryngeal penetration or tracheal aspiration. The pt's cervical vertebrae were curved forward with cervical osteophytes noted at C4, C5-C6 that narrowed the bolus flow, but did not impede the bolus. Near the end of the trials, the pt was c/o the contrast being stuck in her throat, saying it won't go down!. A/P View A/P View Observations Esophageal Function Slowed Clearing,Poor Motility, Reverse Peristalsis,Stasis, Narrowing Esophageal Clearance Upright Position Severe Impairment Additional Observations In the A-P view an esophageal swallow screen was conducted. No additional trials were conducted as the pt's esophagus was full with minimal to no parastaltic motion observed. A hiatal hernia was observed as well as narrowing of the esophagus above the hernia and below the hernia to the GE junction. After 2:46 minutes, with the pt taking several sips of water there was some flow of the contrast observed. Esophageal Observations Esophageal Function There was significant esophageal dysmotility observed with narrowing above and below the hiatal hernia observed. The pt was uncomfortable. Drinking some water helped some of the bolus pass and ease her discomfort. 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
== END ==
PROVIDERS: PCP Family Medicine; Referring Provider Internal Medicine Gastroenterology; Visit Provider Internal Medicine Gastroenterology
DX: R13.10 Dysphagia, unspecified (principal); K44.9 Diaphragmatic hernia without obstruction or gangrene
CPT/HCPCS: 74230; 92611

== ENCOUNTER → 2021-06-14 13:29 | Outpatient (CLI) | payer MEDICARE, SELFPAY ==
[2021-06-14 15:51] LABS: COVID19 -Nasal RAPID Negative (Negative)
== END ==
PROVIDERS: PCP Family Medicine; Referring Provider Nurse Practitioner Family; Visit Provider Nurse Practitioner Family
DX: Z20.822 Contact with and (suspected) exposure to COVID-19 (principal)
CPT/HCPCS: 87635; C9803

== ENCOUNTER 2021-06-16 11:34 | Day surgery (SDC) | payer MEDICARE, SELFPAY ==
[2021-06-16] VITALS (7 sets, daily range): BP systolic 122–169; BP diastolic 52–73; PULSE 59–85; RESP 15–20; TEMP 36.3–36.6; O2SAT 93–99; BMI 23.1
[2021-06-16] MEDS: SODIUM CHLORIDE 0.9% 1,000 ML 84 ML IV (12:18)
--- NOTE | 2021-06-16 12:57 | PM.HP.1 ---
History of Present Illness History of Present Illness Date Patient Seen: 06/16/21 Chief complaint: SDC Narrative: Dysphagia status post redo paraesophageal hernia repair with diaphragm pexy and gastropexy. Barium swallow appears to have some slowing at the GE junction. Patient known to have a peristalsis on esophageal manometry prior to redo. Need for gentle dilation at the GE junction. Patient History Medical History (Updated 10/26/20 @ 00:00 by ) Anticoagulant long-term use Atrial fibrillation Delayed gastric emptying Dilated cardiomyopathy Dysphagia Esophageal achalasia Hypertension Unstable angina Surgical History History of fundoplication History of repair of hiatal hernia Family & Social History Social History: household members friend(s) Tobacco & Substance use: Smoking Status Former smoker alcohol intake never alcohol intake frequency 0-2 drinks per day Substance Use Type does not use Meds Home Medications and Allergies Home Medications Medication Instructions Recorded Confirmed Type losartan 25 mg tablet 25 mg PO DAILY 06/03/20 10/11/20 History metoprolol succinate 50 mg 50 mg PO QPM 06/03/20 10/11/20 History tablet,extended release 24 hr Allergies Allergy/AdvReac Type Severity Reaction Status Date / Time lidocaine Allergy Severe Difficulty Verified 06/16/21 11:51 Breathing codeine Allergy Intermediate Headache Verified 06/16/21 11:51 Penicillins Allergy Intermediate Rash Verified 06/16/21 11:51 Exam Vital Signs (past 8 hours): - 06/16/21 11:56 Temperature 98 F Pulse Rate 61 Respiratory Rate 16 Blood Pressure 169/73 H Pulse Oximetry 97 Oxygen Delivery Method Room Air Narrative Exam Narrative: Oropharynx free of lesions Chest clear to auscultation percussion Cardiac exam reveals no S3 or murmur Assessment & Plan Assessment & Plan narrative: Dysphagia with hang up at the GE junction postoperatively but also known distally peristalsis of the esophagus. Need for further evaluation and dilation. Risks benefits alternatives been explained. Time Spent With Patient Critical Care time: I spent a total of [] minutes of critical care time on this patient's care today; this time is exclusive of procedural time.
--- NOTE | 2021-06-16 13:15 | PM.OP.EGD ---
Operative Date/Time/Diagnoses Date of procedure: 06/16/21 Pre-op diagnosis: See indication and findings Procedure & Clinicians Study performed: EGD with balloon dilation Indications: Complicated case of dysphagia post redo paraesophageal hernia with known esophageal manometry showing esophageal a peristalsis. Barium study shows poor passage of the GE junction. Need for dilation. Surgeon: Chino Doyle Procedure Notes Procedure in detail: After informed consent was obtained the patient was placed in left lateral decubitus position. Video upper scope was placed into the oropharynx with the patient's help swelled in the esophagus. The esophagus appeared grossly normal though there was 1 small bit of solid food in the distal esophagus. Stomach and duodenum were carefully examined. On withdrawal retroflexed view the GE junction was performed. The scope was removed. The patient will the procedure well. Blood loss none Complications none Sedation mac Findings 1. Normal-appearing esophagus the with 1 small bit of retained solid food 2. Lower esophageal sphincter/GE junction was abnormally tight but without clear stricture. The sphincter give way with gentle pressure. It was at least 2 and half to 3 cm long and somewhat tortuous. Afterwards it was noted that this was somewhat friable with a small bit of new blood present. At the end of the procedure using a 15-18 mm balloon of this was dilated. The 15 mm balloon when inflated moved freely within the lower central sphincter. The 17 and 18 mm size is less so. 3. Stomach with moderate to large amount of old partially frayed food present. Otherwise stomach grossly normal 4. Normal duodenal bulb and sweep Resume oral contact us within the next 2-4 weeks illness no how she is doing and if she is improved at all. She does need follow-up appointment with Dr. Chandana Gutiérrez at [facility] who performed her last surgery.
== END 2021-06-16 14:25 | disposition home or self-care (01) ==
PROVIDERS: PCP Family Medicine; Referring Provider Internal Medicine Gastroenterology; Visit Provider Internal Medicine Gastroenterology
PROC: 0DJ08ZZ Inspection of Upper Intestinal Tract, Via Natural or Artificial Opening Endoscopic (ICD-10-PCS; CPT 43235; principal; 2021-06-16 13:00)
DX: R13.10 Dysphagia, unspecified (principal); K22.0 Achalasia of cardia; I48.91 Unspecified atrial fibrillation; I10 Essential (primary) hypertension; I20.0 Unstable angina; Z87.891 Personal history of nicotine dependence
CPT/HCPCS: 43249; J2704